=== PATIENT | female | born 1975 | race African-American/Black ===

== ENCOUNTER → 2018-07-25 | Outpatient (CLI) | payer OTHER ==
--- NOTE | 2018-07-25 15:22 | EKG ---
[facility] [address] [place] [address] Test Date: 2018-07-25 Test Time: 15:16:29 Pat Name: JOSUE CAMP Department: Room: Gender: F Drafter (Cad) Electronic: JENNIFER : 1975 Requested By: JANNETH GARCIA Order Number: [id number] Reading MD: Maximilian Abdul Measurements Intervals [place] Rate: 62 P: 40 MN: 140 QRS: 57 QRSD: 72 T: 31 QT: 374 QTc: 382 Interpretive Statements SINUS RHYTHM NO SPECIFIC ECG ABNORMALITIES RI6.01 Unconfirmed report No previous ECG available for comparison Electronically Signed On 08-01-2018 11:40:43 CDT by Maximilian Abdul
== END | disposition home or self-care (01) ==
LOC: EKG 14:56
PROVIDERS: ATTEND Obstetrics & Gynecology
DX: I49.9 Cardiac arrhythmia, unspecified (principal)
CPT/HCPCS: 93005

== ENCOUNTER → 2020-11-23 | Outpatient (CLI) | payer OTHER ==
[2020-11-23 13:33] LABS: BASO # 0.1 x10^3/uL (0.0-0.2); BASO % 1 % (0-3); EOS # 0.3 x10^3/uL (0.0-0.7); EOS % 2 % (0-3); HEMATOCRIT 41.9 % (36.0-47.0); HEMOGLOBIN 14.4 g/dL (12.0-15.5); LYMPH # 2.6 x10^3/uL (1.0-4.8); LYMPH % 22 % (24-48); MEAN CORPUSCULAR HEMOGLOBIN 32 pg (25-35); MEAN CORPUSCULAR HGB CONC 35 g/dL (31-37); MEAN CORPUSCULAR VOLUME 93 fL (79-100); MONO # 0.5 x10^3/uL (0.0-1.1); MONO % 4 % (0-9); NEUT # 8.3 x10^3/uL (1.8-7.7); NEUT % 70 % (31-73); PLATELET COUNT 204 x10^3/uL (140-400); RED BLOOD COUNT 4.51 x10^6/uL (3.50-5.40); RED CELL DISTRIBUTION WIDTH 13.3 % (11.5-14.5); WHITE BLOOD COUNT 11.8 x10^3/uL (4.0-11.0)
== END ==
LOC: ONCLAB 13:10
PROVIDERS: ATTEND Internal Medicine Hematology & Oncology
DX: E04.2 Nontoxic multinodular goiter (principal); R58 Hemorrhage, not elsewhere classified
CPT/HCPCS: 36415; 84443; 85025